=== PATIENT | female | born 1970 | race African-American/Black ===

== ENCOUNTER 2019-02-20 19:55 | Emergency (ER) | payer SELFPAY ==
[~2019-02-20] VITALS: Ht 175.3 cm; Wt 85.3 kg
[2019-02-20 20:05] VITALS: BP 140/77
[2019-02-20] MEDS ORDERED: KETOROLAC 60 MG/2 ML VIAL. IM ONE (20:30)
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
[2019-02-20] MEDS ORDERED: CYCL10TA2 PO (21:10)
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
== END 2019-02-20 21:31 | disposition home or self-care (01) ==
LOC: ER 19:55
DX: S39.012A Strain of muscle, fascia and tendon of lower back, initial encounter (principal); I10 Essential (primary) hypertension; Z98.890 Other specified postprocedural states; V49.9XXA Car occupant (driver) (passenger) injured in unspecified traffic accident, initial encounter; Y93.89 Activity, other specified; Y92.488 Other paved roadways as the place of occurrence of the external cause; Y99.8 Other external cause status
CPT/HCPCS: 72100; 99284